=== PATIENT | female | born 1990 | race Two or more races ===

== ENCOUNTER 2021-10-30 22:37 | Emergency (ER) | payer OTHER ==
[~2021-10-30] VITALS: Ht 165.1 cm; Wt 54.4 kg
--- NOTE | 2021-10-30 22:37 | NUR ---
Pt BIB BLS, placed to ER hallway on [facility] awaiting bed placement.
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
[2021-10-30 22:49] VITALS: BP_SYST 125
--- NOTE | 2021-10-30 23:00 | NUR ---
Dr. Garner at bedside.
--- NOTE | 2021-10-30 23:10 | NUR ---
Ice pack applied to bridge of nose.
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
--- NOTE | 2021-10-30 23:40 | NUR ---
Pt to CT via W/C.
--- NOTE | 2021-10-30 23:55 | NUR ---
Pt returns from CT.
--- NOTE | 2021-10-31 01:00 | NUR ---
Dr. Garner at bedside to dermabond lacerations.
[2021-10-31] MEDS ORDERED: AMOX-426 PO (01:10)
[2021-10-31] MEDS ORDERED: IBUP-1969 PO (01:10)
[2021-10-31] MEDS ORDERED: BACI15OI13 TP (01:11)
[2021-10-31] MEDS ORDERED: BACITRACIN ZINC 15 GM TOPICAL OINTMENT TP ONE ×2 (01:15→02:15)
[2021-10-31] MEDS ORDERED: KETOROLAC TROMETHAMINE 30 MG VIAL IM ONE (01:15)
[2021-10-31] MEDS ORDERED: BACITRACIN 1 GM OINT TP ONE (02:07)
[2021-10-31 02:15] VITALS: BP_SYST 128
--- NOTE | 2021-10-31 02:15 | NUR ---
Patient given written and verbal discharge instructions and verbalizes understanding. ER MD discussed with patient the results and treatment provided. Patient in stable condition. ID arm band removed. Rx of Augmentin, Bacitracin, and Ibuprofen sent electronically to preferred pharmacy. Patient educated on pain management and to follow up with PMD. Pain Scale 0/10. Opportunity for questions provided and answered. Medication side effect fact sheet provided.
== END 2021-10-31 02:15 | disposition home or self-care (01) ==
LOC: SED 22:37
DX: S02.2XXA Fracture of nasal bones, initial encounter for closed fracture (principal); S01.81XA Laceration without foreign body of other part of head, initial encounter; Z79.899 Other long term (current) drug therapy; V49.49XA Driver injured in collision with other motor vehicles in traffic accident, initial encounter; Y93.89 Activity, other specified; Y92.89 Other specified places as the place of occurrence of the external cause; Y99.8 Other external cause status
CPT/HCPCS: 70486; 76376; 96372; 99284; J1885